=== PATIENT | female | born 1950 | race Caucasian/White ===

== ENCOUNTER 2016-08-11 10:19 | Emergency (ER) | payer MEDICARE, BC ==
[~2016-08-11 10:19] MED LIST: ACETAMINOPHEN PO; ACID CONTROL150 MG PO; ALLEGRA-D1 TAB.SR1 PO; ASPIRINEC PO; ATENOLOL PO; AUGMENTIN PO; AVAPRO PO; CELEXA PO; CLARITIN10 MG PO; FISH OIL PEARL1 EAC1 PO; FLONASE16 GM; LEXAPRO; LEXAPRO PO; MELOXICAM15 MG PO; PLAVIX PO; PRILOSEC PO; PRILOSEC20 MG PO; REQUIP1 MG PO; SINGULAIR PO; VICODIN 5/1 TAB 5/50 PO; VITAMIN C500 M1 PO; WELLBUTRIN SR PO; ZEGERID 20 MG C1 CAP; ZEGERID 20 MG C1 CAP PO
== END 2016-08-11 11:31 | disposition home or self-care (01) ==
LOC: CED 10:19
DX: G43.109 Migraine with aura, not intractable, without status migrainosus (principal); I10 Essential (primary) hypertension; G45.9 Transient cerebral ischemic attack, unspecified; Z88.8 Allergy status to other drugs, medicaments and biological substances
CPT/HCPCS: 36415; 96361; 96374; 96375; 99284; J0780; J1100; J2060